=== PATIENT | male | born 1965 | race Caucasian/White ===

== ENCOUNTER → 2016-10-11 | Outpatient (CLI) | payer OTHER ==
[~2016-10-11] MED LIST: DECADRON 1MG TAB1 MG PO; DECADRON 4MG TAB4 MG PO; KEPPRA 500MG500 MG PO; OXY IR5 MG PO; ULTRAM 50MG TAB50 MG PO
== END ==
LOC: COL.RAD 11:00
DX: R51 Headache (principal); J32.9 Chronic sinusitis, unspecified; G93.9 Disorder of brain, unspecified
CPT/HCPCS: Q9967

== ENCOUNTER 2016-10-31 02:34 | Emergency (ER) | payer OTHER ==
[~2016-10-31] VITALS: Ht 172.7 cm; Wt 70.5 kg
[2016-10-31] MEDS ORDERED: KEPPRA 500MG500 MG PO (03:19)
[2016-10-31] MEDS ORDERED: DECADRON 1MG TAB1 MG PO (03:23)
[2016-10-31] MEDS ORDERED: OXY IR5 MG PO (03:24)
[2016-10-31 04:12] VITALS: BP 110/71; PULSE 53; TEMP 98.4
== END 2016-10-31 04:34 | disposition home or self-care (01) ==
LOC: COL.ER 02:34
DX: K56.41 Fecal impaction (principal); Z98.890 Other specified postprocedural states

== ENCOUNTER 2016-11-04 20:13 | Emergency (ER) | payer OTHER ==
[~2016-11-04] VITALS: Ht 172.7 cm; Wt 70.5 kg
[~2016-11-04 20:13] MED LIST changes: -DECADRON 4MG TAB4 MG PO; -ULTRAM 50MG TAB50 MG PO
[2016-11-04 20:14] VITALS: TEMP 98.9
[2016-11-04] MEDS ORDERED: DECADRON 4MG TAB4 MG PO (21:02)
[2016-11-04] MEDS ORDERED: OXY IR5 MG PO (21:03)
[2016-11-04] MEDS ORDERED: ULTRAM 50MG TAB50 MG PO (23:05)
[2016-11-04 23:32] VITALS: BP 116/80; PULSE 48
== END 2016-11-04 23:45 | disposition home or self-care (01) ==
LOC: COL.ER 20:13
DX: R51 Headache (principal); Z98.890 Other specified postprocedural states; C71.1 Malignant neoplasm of frontal lobe
CPT/HCPCS: J1170; J2405; J7030

== ENCOUNTER 2016-11-05 08:12 | Emergency (ER) | payer OTHER ==
[~2016-11-05] VITALS: Ht 172.7 cm; Wt 70.5 kg
[~2016-11-05 08:12] MED LIST changes: +DECADRON 4MG TAB4 MG PO; +ULTRAM 50MG TAB50 MG PO
[2016-11-05 08:32] VITALS: TEMP 98.5
[2016-11-05 08:46] LABS: HEMATOCRIT 38.6 % (42.0-52.0); HEMOGLOBIN 13.2 g/dl (13.5-18.0); MEAN CELL VOLUME 96 fl (80.0-100.0); MEAN CORPUSCULAR HEMOGLOBIN 33 pg (27.0-31.0); MEAN CORPUSCULAR HGB CONC 34 g/dl (33.0-37.0); MEAN PLATELET VOLUME 9.1 fl (7.4-10.4); PLATELET COUNT 300 K/mm3 (130-400); RED BLOOD COUNT 4.04 M/mm3 (4.20-5.60); REDCELL DISTRIBUTION WIDTH-CV 13.2 % (11.5-14.5)
[2016-11-05 08:53] LABS: ADD PATHOLOGY DIFF REVIEW NO
[2016-11-05 09:01] LABS: ADJUSTED CALCIUM 8.5 mg/dL (8.4-10.2); ALBUMIN 3.8 gm/dL (3.5-5.0); BILIRUBIN,TOTAL 0.9 mg/dL (0.0-1.0); C-REACTIVE PROTEIN 4.2 mg/dL (0.0-0.9); CALCIUM 8.3 mg/dL (8.4-10.2); CREATININE, serum 0.88 mg/dL (0.66-1.25); POTASSIUM 3.9 mmol/L (3.4-5.0); TOTAL PROTEIN 6.5 gm/dL (6.4-8.2)
[2016-11-05 09:40] VITALS: BP 100/68; PULSE 48
[2016-11-05 09:45] LABS: BAND 25 % (0-10); NEUTROPHILS 69 % (42.0-75.2); PLATELET ESTIMATE NORMAL (NORMAL); TOTAL CELLS COUNTED 200
== END 2016-11-05 10:05 | disposition short-term general hospital (02) ==
LOC: COL.ER 08:12
PROVIDERS: Emergency Medicine
DX: R51 Headache (principal); R50.9 Fever, unspecified; M54.2 Cervicalgia; C71.2 Malignant neoplasm of temporal lobe; Z98.890 Other specified postprocedural states
CPT/HCPCS: J0692; J1170; J2405; J2550; J3370; J7030; J7050

== ENCOUNTER 2021-03-31 19:03 | Emergency (ER) | payer OTHER ==
[~2021-03-31] VITALS: Ht 170.2 cm; Wt 75.0 kg
[2021-03-31] MEDS ORDERED: CELEBREX 200MG200 MG PO (19:41)
[2021-03-31] MEDS ORDERED: DEPAKOTE500 MG PO (19:42)
[2021-03-31] MEDS ORDERED: GLUCOPHAGE500 MG/TAB PO (19:42)
[2021-03-31] MEDS ORDERED: TEMODAR20 MG (19:43)
[2021-03-31] MEDS ORDERED: ASPIRIN 81M81 MG/TA2 PO (19:43)
[2021-03-31] MEDS ORDERED: SODIUM CHLORIDE1 GM PO (19:44)
[2021-03-31] MEDS ORDERED: NATURAL MAGNES200 MG PO (19:44)
[2021-03-31 19:56] LABS: BASO # 0.1 (0.0-0.2); EOS # 0.4 (0.0-0.7); EOS % 5.7 % (0-4.0); GRAN # 2.4 (1.4-6.5); GRAN % 39.8 % (42.2-75.2); HEMATOCRIT 39.9 % (42.0-52.0); HEMOGLOBIN 13.6 g/dl (13.5-18.0); LYMPH # 2.3 (1.2-3.4); LYMPH % 37.8 % (20.0-51.0); MEAN CELL VOLUME 95 fl (80.0-100.0); MEAN CORPUSCULAR HEMOGLOBIN 33 pg (27.0-31.0); MEAN CORPUSCULAR HGB CONC 34 g/dl (33.0-37.0); MEAN PLATELET VOLUME 9.4 fl (7.4-10.4); MONO % 15.5 % (1.7-9.3); PLATELET COUNT 279 K/mm3 (130-400); RED BLOOD COUNT 4.19 M/mm3 (4.20-5.60); REDCELL DISTRIBUTION WIDTH-CV 12.8 % (11.5-14.5)
[2021-03-31 20:07] LABS: INR 1.1 (0.8-3.0); PROTHROMBIN TIME 11.8 SECONDS (9.7-12.8)
[2021-03-31 20:30] LABS: ALBUMIN 4.1 gm/dL (3.5-5.0); BILIRUBIN,TOTAL 0.3 mg/dL (0.0-1.0); CREATININE, serum 0.72 (0.66-1.25); POTASSIUM 4.4 mmol/L (3.4-5.0); TOTAL PROTEIN 6.9 gm/dL (6.4-8.2)
[2021-03-31 23:07] VITALS: BP 127/88; PULSE 64; TEMP 98.3
== END 2021-03-31 23:09 | disposition home or self-care (01) ==
LOC: COL.ER 19:03
PROVIDERS: Personal Emergency Response Attendant
DX: C71.9 Malignant neoplasm of brain, unspecified (principal); Z98.890 Other specified postprocedural states; Z79.899 Other long term (current) drug therapy
CPT/HCPCS: Q9967

== ENCOUNTER 2021-04-02 14:39 | Emergency (ER) | payer OTHER ==
[~2021-04-02] VITALS: Ht 170.2 cm; Wt 72.7 kg
[~2021-04-02 14:39] MED LIST changes: +ASPIRIN 81M81 MG/TA2 PO; +CELEBREX 200MG200 MG PO; +DEPAKOTE500 MG PO; +GLUCOPHAGE500 MG/TAB PO; +NATURAL MAGNES200 MG PO; +SODIUM CHLORIDE1 GM PO; +TEMODAR20 MG
[2021-04-02 14:41] VITALS: TEMP 98.3
[2021-04-02 15:15] LABS: HEMOGLOBIN 12.4 g/dl (13.5-18.0); MEAN CELL VOLUME 96 fl (80.0-100.0); MEAN CORPUSCULAR HEMOGLOBIN 33 pg (27.0-31.0); MEAN CORPUSCULAR HGB CONC 34 g/dl (33.0-37.0); MEAN PLATELET VOLUME 8.9 fl (7.4-10.4); PLATELET COUNT 253 K/mm3 (130-400); RED BLOOD COUNT 3.78 M/mm3 (4.20-5.60); REDCELL DISTRIBUTION WIDTH-CV 13.1 % (11.5-14.5)
[2021-04-02 15:16] LABS: HEMATOCRIT 36.1 % (42.0-52.0)
[2021-04-02 15:25] LABS: ALBUMIN 3.7 gm/dL (3.5-5.0); BILIRUBIN,TOTAL 0.3 mg/dL (0.0-1.0); CALCIUM 8.8 mg/dL (8.4-10.2); CREATININE, serum 0.75 (0.66-1.25); POTASSIUM 4.8 mmol/L (3.4-5.0); TOTAL PROTEIN 6.1 gm/dL (6.4-8.2)
[2021-04-02 15:31] LABS: INR 1.1 (0.8-3.0); PROTHROMBIN TIME 12.4 SECONDS (9.7-12.8)
[2021-04-02 15:35] LABS: EOSINOPHIL 2 % (0-4); LYMPHOCYTE 17 % (20.0-51.0); MYELOCYTE 1 % (0-0); NEUTROPHILS 69 % (42.0-75.2)
[2021-04-02 15:36] LABS: PLATELET ESTIMATE NORMAL (NORMAL)
[2021-04-02 18:48] VITALS: BP 115/89; PULSE 95
== END 2021-04-02 19:06 | disposition short-term general hospital (02) ==
LOC: COL.ER 14:39
PROVIDERS: Physician Assistant
DX: R29.810 Facial weakness (principal); C71.9 Malignant neoplasm of brain, unspecified; E87.1 Hypo-osmolality and hyponatremia; Z20.822 Contact with and (suspected) exposure to COVID-19; Z79.899 Other long term (current) drug therapy
CPT/HCPCS: J1885; J2765

== ENCOUNTER 2021-08-22 16:00 | Outpatient (RCR) | payer OTHER | END 2021-09-21 | disposition home or self-care (01) | LOC: MKS.ESL.OT | DX: I63.9 Cerebral infarction, unspecified (principal) ==

== ENCOUNTER 2021-10-09 18:57 | Emergency (ER) | payer OTHER ==
[~2021-10-09] VITALS: Ht 170.2 cm; Wt 75.0 kg
[2021-10-10] VITALS: BP 110/81; PULSE 62; TEMP 98.4
== END 2021-10-10 | disposition short-term general hospital (02) ==
LOC: COL.ER 18:57
DX: S06.2X0A Diffuse traumatic brain injury without loss of consciousness, initial encounter (principal); Z20.822 Contact with and (suspected) exposure to COVID-19; W01.198A Fall on same level from slipping, tripping and stumbling with subsequent striking against other object, initial encounter

== ENCOUNTER 2022-03-05 09:18 | Outpatient (RCR) | payer OTHER | END 2022-03-05 09:19 | disposition home or self-care (01) | LOC: MKS.ESL.OT 09:18 | DX: I69.359 Hemiplegia and hemiparesis following cerebral infarction affecting unspecified side (principal) ==

== ENCOUNTER 2023-10-23 17:35 | Emergency (ER) | payer MEDICARE, OTHER ==
[~2023-10-23] VITALS: Ht 170.2 cm; Wt 75.5 kg
[2023-10-23 17:48] LABS: BASO # 0.1 K/mm3 (0.0-0.2); BASO % 0.7 % (0.0-2.0); EOS # 0.1 K/mm3 (0.0-0.7); EOS % 1.3 % (0.0-4.0); GRAN # 6.2 K/mm3 (1.4-6.5); GRAN % 65.6 % (42.2-75.2); HEMATOCRIT 38.4 % (42.0-52.0); HEMOGLOBIN 13.4 g/dl (13.5-18.0); LYMPH # 2.2 K/mm3 (1.2-3.4); LYMPH % 22.8 % (20.0-51.0); MEAN CELL VOLUME 93 fl (80.0-100.0); MEAN CORPUSCULAR HEMOGLOBIN 33 pg (27-31); MEAN CORPUSCULAR HGB CONC 35 g/dl (33.0-37.0); MEAN PLATELET VOLUME 8.5 fl (7.4-10.4); MONO # 0.9 K/mm3 (0.1-0.6); MONO % 9.3 % (1.7-9.3); PLATELET COUNT 278 K/mm3 (130-400); RED BLOOD COUNT 4.12 M/mm3 (4.20-5.60); REDCELL DISTRIBUTION WIDTH-CV 12.4 % (11.5-14.5)
[2023-10-23 18:10] LABS: ALBUMIN 3.8 gm/dL (3.5-5.0); BILIRUBIN,TOTAL 0.3 mg/dL (0.2-1.2); CALCIUM 8.8 mg/dL (8.4-10.2); CREATININE, serum 0.81 mg/dL (0.72-1.25); POTASSIUM 4.2 mmol/L (3.5-4.5); TOTAL PROTEIN 6.1 gm/dL (6.2-8.1)
[2023-10-23 18:57] VITALS: BP 122/82; PULSE 73; TEMP 98.4
== END 2023-10-23 18:57 | disposition home or self-care (01) ==
LOC: COL.ER 17:35
PROVIDERS: Emergency Medicine
DX: T69.9XXA Effect of reduced temperature, unspecified, initial encounter (principal); S00-T88 Injury, poisoning and certain other consequences of external causes; S60.512A Abrasion of left hand, initial encounter; S60.511A Abrasion of right hand, initial encounter; S00.81XA Abrasion of other part of head, initial encounter; G93.89 Other specified disorders of brain; Z23 Encounter for immunization; Z86.73 Personal history of transient ischemic attack (TIA), and cerebral infarction without residual deficits; Z85.841 Personal history of malignant neoplasm of brain; Z79.01 Long term (current) use of anticoagulants; X31.XXXA Exposure to excessive natural cold, initial encounter